=== PATIENT | male | born 1965 | race African-American/Black ===

== ENCOUNTER 2025-01-22 19:35 | Emergency (ER) | payer MEDICARE, OTHER ==
[~2025-01-22] VITALS: Ht 182.9 cm; Wt 174.6 kg
[2025-01-22 19:41] VITALS: PULSE 104; RESP 18; TEMP 98.7
[2025-01-22] MEDS ORDERED: CEPHALEXIN500 MG PO (20:06)
[2025-01-22] MEDS ORDERED: BACITRACIN ZINC 0.9GM TP ONE ×2 (20:11→20:15)
[2025-01-22 20:20] VITALS: BP 186/91; PULSE 104; RESP 18; TEMP 98.7; O2SAT 97
== END 2025-01-22 20:20 | disposition home or self-care (01) ==
LOC: FSED 19:45
DX: S01.81XA Laceration without foreign body of other part of head, initial encounter (principal); W01.0XXA Fall on same level from slipping, tripping and stumbling without subsequent striking against object, initial encounter; Y93.01 Activity, walking, marching and hiking; Y92.89 Other specified places as the place of occurrence of the external cause; I10 Essential (primary) hypertension; E11.9 Type 2 diabetes mellitus without complications; E66.01 Morbid (severe) obesity due to excess calories
CPT/HCPCS: 99283